=== PATIENT | female | born 1995 | race Caucasian/White ===

== ENCOUNTER 2023-12-15 23:50 | Emergency (ER) | payer SELFPAY ==
[~2023-12-15] VITALS: Ht 167.6 cm; Wt 66.0 kg
[2023-12-15 23:54] VITALS: BP 94/60; PULSE 80; RESP 16; TEMP 97.8; O2SAT 96
[2023-12-16] MEDS: SODIUM CHLORIDE 0.9% 1,000 ML IV ONE (00:57)
[2023-12-16] MEDS: ONDANSETRON HCL 4MG/2ML INJ IV ONE (01:00)
[2023-12-16 02:16] LABS: HCG SCREEN NEGATIVE
== END 2023-12-16 04:01 | disposition home or self-care (01) ==
LOC: ER 23:50
DX: F10.129 Alcohol abuse with intoxication, unspecified (principal); Y90.8 Blood alcohol level of 240 mg/100 ml or more
CPT/HCPCS: 99283; 80320; 84703; 36415; 96361; 96374; J2405; J7030; Z7610 ×2; G0480